=== PATIENT | female | born 1990 | race Two or more races ===

== ENCOUNTER 2025-05-13 18:01 | Inpatient (IN) | payer BC, OTHER ==
[~2025-05-13] VITALS: Ht 162.6 cm; Wt 105.0 kg
[2025-05-13] MEDS ORDERED: DAPA1TAB5 PO (18:08)
[2025-05-13 18:20] LABS: GLUCOMETER DEV NAME(LOC) ERT.7; GLUCOSE,POINT OF CARE 391 MG/DL (70-110)
[2025-05-13] MEDS: SODIUM CHLORIDE 0.9% 1,000 ML IV ONE (18:34)
[2025-05-13 18:38] LABS: PLATELET COUNT (AUTO) 271 K/uL (150-450); RED BLOOD CELL COUNT(AUTO) 4.98 MIL/uL (4.00-5.20); RED CELL DISTRIBUTION WIDTH 13.4 % (11.5-14.5); WHITE BLOOD COUNT (AUTO) 8.8 K/uL (4.5-11.0)
[2025-05-13 18:43] LABS: CALCIUM, TOTAL 8.9 mg/dL (8.8-10.5); CREATININE 0.85 mg/dL (0.60-1.30); GLOMERULAR FILTR. RATE CALC > 60 mL/min (>60); GLUCOSE,RANDOM 349 mg/dL (70-110); SODIUM SERUM 134 mmol/L (136-145); UREA NITROGEN, BLOOD 9 mg/dL (7-18)
[2025-05-13] MEDS: INSULIN REGULAR, HUMAN 100 UNITS/ML IVP ONE ×2 (19:00→20:57)
[2025-05-13 19:15] LABS: APPEARANCE,URINE CLEAR (CLEAR); GLUCOSE, URINE (UA) >=1000 mg/dL (NEGATIVE); LEUKOCYTE ESTERASE ,URINE NEGATIVE (NEGATIVE); NITRATE,URINE NEGATIVE (NEGATIVE); OCCULT BLOOD,URINE NEGATIVE (NEGATIVE); SPECIFIC GRAVITIY, URINE 1.041 (1.003-1.030)
[2025-05-13] MEDS ORDERED: SODIUM CHLORIDE 0.45% 1,000 ML IV PRN ×2 (20:00→23:00)
[2025-05-13] MEDS: SODIUM CHLORIDE 0.9% 1,000 ML IV SCH (20:00)
[2025-05-13] MEDS ORDERED: POTASSIUM CHLORIDE 40 MEQ in SODIUM CHLORIDE 0.45% 1,000 ML IV PRN ×2 (20:00→23:00)
[2025-05-13] MEDS ORDERED: INSULIN REGULAR, HUMAN 100 UNITS/ML IVP PRN ×2 (20:00→23:00)
[2025-05-13] MEDS ORDERED: DEXTROSE 50%-WATER 25 GM/50 ML SYRINGE IVP PRN ×2 (20:00→23:00)
[2025-05-13 20:06] LABS: GLUCOMETER DEV NAME(LOC) ER.7; GLUCOSE,POINT OF CARE 246 MG/DL (70-110)
[2025-05-13] MEDS: POTASSIUM CHL 20 MEQ/0.45% NS 1,000 ML IV PRN (20:57)
[2025-05-13] MEDS: DEXTROSE 5%-0.45% SODIUM CHL 1,000 ML IV PRN (20:58)
[2025-05-13] MEDS: INSULIN REGULAR, HUMAN 100 UNITS in SODIUM CHLORIDE 0.9% 99 ML IV PRN (20:58)
[2025-05-13 22:15] LABS: GLUCOMETER DEV NAME(LOC) ER.7; GLUCOSE,POINT OF CARE 210 MG/DL (70-110)
[2025-05-13] MEDS ORDERED: ZOLPIDEM TARTRATE 5 MG TABLET PO PRN (23:00)
[2025-05-13] MEDS ORDERED: ACETAMINOPHEN 325 MG TABLET PO PRN (23:00)
[2025-05-13] MEDS ORDERED: IPRATROPIUM BROMIDE 0.5 MG/2.5 ML NEB SOLUTION NEB PRN (23:00)
[2025-05-13] MEDS ORDERED: MORPHINE SULFATE 2 MG/ML SYRINGE IVP PRN (23:00)
[2025-05-13] MEDS ORDERED: POTASSIUM CHL 20 MEQ/0.45% NS 1,000 ML IV PRN (23:00)
[2025-05-13] MEDS ORDERED: ALBUTEROL SULFATE 2.5 MG/0.5 ML NEB SOLUTION NEB PRN (23:00)
[2025-05-13] MEDS ORDERED: MAGNESIUM HYDROXIDE SUSPENSION 30 ML UDCUP PO PRN (23:00)
[2025-05-13] MEDS ORDERED: DEXTROSE 5%-0.45% SODIUM CHL 1,000 ML IV PRN (23:00)
[2025-05-13] MEDS ORDERED: BISACODYL 10 MG RECTAL RECTAL SUPPOSITORY PR PRN (23:00)
[2025-05-13] MEDS ORDERED: HYDROCODONE/ACETAMINOPHEN 5-325 MG TABLET PO PRN (23:00)
[2025-05-13] MEDS ORDERED: SODIUM CHLORIDE 0.9% 1,000 ML IV SCH (23:00)
[2025-05-13] MEDS ORDERED: INSULIN REGULAR, HUMAN 100 UNITS/ML IVP ONE (23:00)
[2025-05-13] MEDS ORDERED: ONDANSETRON HCL 4 MG/2 ML VIAL IVP PRN (23:00)
[2025-05-13] MEDS ORDERED: MORPHINE SULFATE 4 MG/ML VIAL IVP PRN (23:08)
[2025-05-13 23:16] LABS: GLUCOMETER DEV NAME(LOC) ER.7; GLUCOSE,POINT OF CARE 146 MG/DL (70-110)
[2025-05-14] VITALS: BP 106/61; PULSE 80; RESP 26; TEMP 97.6; O2SAT 97
[2025-05-14] MEDS: HEPARIN SODIUM,PORCINE 5,000 UNITS/ML VIAL SQ SCH (00:42)
[2025-05-14 00:43] LABS: CALCIUM, TOTAL 8.2 mg/dL (8.8-10.5); CREATININE 0.67 mg/dL (0.60-1.30); GLOMERULAR FILTR. RATE CALC > 60 mL/min (>60); GLUCOSE,RANDOM 77 mg/dL (70-110); SODIUM SERUM 135 mmol/L (136-145); UREA NITROGEN, BLOOD 10 mg/dL (7-18)
[2025-05-14] MEDS: POTASSIUM CHLORIDE 40 MEQ in SODIUM CHLORIDE 0.45% 1,000 ML IV SCH ×2 (03:13→23:13)
[2025-05-14 04:00] VITALS: BP 114/65; PULSE 70; RESP 18; TEMP 98.2; O2SAT 98
[2025-05-14 05:16] LABS: GLUCOMETER DEV NAME(LOC) ICUN.6; GLUCOSE,POINT OF CARE 90 MG/DL (70-110)
[2025-05-14 05:16] LABS: GLUCOMETER DEV NAME(LOC) ICUN.6; GLUCOSE,POINT OF CARE 93 MG/DL (70-110)
[2025-05-14 05:16] LABS: GLUCOMETER DEV NAME(LOC) ICUN.6; GLUCOSE,POINT OF CARE 76 MG/DL (70-110)
[2025-05-14 05:16] LABS: GLUCOMETER DEV NAME(LOC) ICUN.6; GLUCOSE,POINT OF CARE 110 MG/DL (70-110)
[2025-05-14 05:16] LABS: GLUCOMETER DEV NAME(LOC) ICUN.6; GLUCOSE,POINT OF CARE 117 MG/DL (70-110)
[2025-05-14 05:16] LABS: GLUCOMETER DEV NAME(LOC) ICUN.6; GLUCOSE,POINT OF CARE 92 MG/DL (70-110)
[2025-05-14 05:21] LABS: GLUCOMETER DEV NAME(LOC) ICU.S7; GLUCOSE,POINT OF CARE 133 MG/DL (70-110)
[2025-05-14 06:03] LABS: ASPARTATE AMINOTRANSFERASE 18 U/L (15-37); CALCIUM, TOTAL 8.0 mg/dL (8.8-10.5); CREATININE 0.49 mg/dL (0.60-1.30); GLOMERULAR FILTR. RATE CALC > 60 mL/min (>60); GLUCOSE,RANDOM 86 mg/dL (70-110); PHOSPHORUS 3.1 mg/dL (2.5-4.9); SODIUM SERUM 136 mmol/L (136-145); TOTAL PROTEIN, SERUM 6.3 g/dL (6.4-8.2); UREA NITROGEN, BLOOD 11 mg/dL (7-18)
[2025-05-14 06:31] LABS: GLUCOMETER DEV NAME(LOC) ICU.S7; GLUCOSE,POINT OF CARE 99 MG/DL (70-110)
[2025-05-14 08:00] VITALS: BP 94/57; PULSE 80; RESP 18; TEMP 98.2; O2SAT 97
[2025-05-14 09:32] LABS: CALCIUM, TOTAL 7.7 mg/dL (8.8-10.5); CREATININE 0.61 mg/dL (0.60-1.30); GLOMERULAR FILTR. RATE CALC > 60 mL/min (>60); GLUCOSE,RANDOM 99 mg/dL (70-110); SODIUM SERUM 135 mmol/L (136-145); UREA NITROGEN, BLOOD 9 mg/dL (7-18)
[2025-05-14] MEDS: DOCUSATE SODIUM 100 MG CAPSULE PO SCH (09:55)
[2025-05-14] MEDS: PANTOPRAZOLE SODIUM 40 MG DR TABLET PO SCH (09:55)
[2025-05-14] MEDS: INSULIN REGULAR, HUMAN 100 UNITS in SODIUM CHLORIDE 0.9% 99 ML IV PRN (10:30)
[2025-05-14 10:37] LABS: ABG A-A DIFF O2 23.8 mmHg (10-20.0); ABG BASE EXCESS -10.5 mmol/L (-2.0-3.0); ABG CARBOXYHEMOGLOBIN 0.3 % (0.5-1.5); ABG HCO3 17.2 mmol/L (21.0-28.0); ABG METHEMOGLOBIN 0.0 % (0.0-1.5); ABG OXYGEN CONTENT 18.4 mL/dL (15.0-23.0); ABG OXYGEN SATURATION 97.0 % (94.0-98.0); ABG OXYHEMOGLOBIN 96.7 % (94.0-98.0); ABG PCO2 30 mmHg (32.0-45.0); ABG PH 7.326 (7.350-7.450); ABG TOTAL HEMOGLOBIN 13.5 G/dL (12.0-16.0); ALLEN TEST, BLOOD GAS Positive; FRACTIONATED INSPIRED OXYGEN 21.0 % (21-100.0); PO2, ARTERIAL BG 89.6 mmHg (83.0-108.0); SITE, BLOOD GAS LFT RADIAL; SOURCE, BLOOD GAS ARTERIAL; TEMPERATURE, FAHRENHEIT, BG 98.2 FAHREN (96.0-98.6)
[2025-05-14 10:38] LABS: O2 DEVICE,BLOOD GAS ROOM AIR (ROOM AIR)
[2025-05-14 10:41] LABS: GLUCOMETER DEV NAME(LOC) ICU.S7; GLUCOSE,POINT OF CARE 138 MG/DL (70-110)
[2025-05-14 10:41] LABS: GLUCOMETER DEV NAME(LOC) ICU.S7; GLUCOSE,POINT OF CARE 107 MG/DL (70-110)
[2025-05-14 10:41] LABS: GLUCOMETER DEV NAME(LOC) ICU.S7; GLUCOSE,POINT OF CARE 114 MG/DL (70-110)
[2025-05-14 10:41] LABS: GLUCOMETER DEV NAME(LOC) ICU.S7; GLUCOSE,POINT OF CARE 80 MG/DL (70-110)
[2025-05-14 12:00] VITALS: BP 100/61; PULSE 86; RESP 18; TEMP 98.4; O2SAT 98
[2025-05-14 12:55] LABS: GLUCOMETER DEV NAME(LOC) ICU.S7; GLUCOSE,POINT OF CARE 93 MG/DL (70-110)
[2025-05-14 12:55] LABS: GLUCOMETER DEV NAME(LOC) ICU.S7; GLUCOSE,POINT OF CARE 91 MG/DL (70-110)
[2025-05-14 13:41] LABS: GLUCOMETER DEV NAME(LOC) ICU.S7; GLUCOSE,POINT OF CARE 74 MG/DL (70-110)
[2025-05-14 13:41] LABS: GLUCOMETER DEV NAME(LOC) ICUN.6; GLUCOSE,POINT OF CARE 132 MG/DL (70-110)
[2025-05-14 16:00] VITALS: BP 111/69; PULSE 77; RESP 18; TEMP 98.3; O2SAT 98
[2025-05-14 18:20] LABS: GLUCOMETER DEV NAME(LOC) ICU.S7; GLUCOSE,POINT OF CARE 132 MG/DL (70-110)
[2025-05-14 18:20] LABS: GLUCOMETER DEV NAME(LOC) ICU.S7; GLUCOSE,POINT OF CARE 147 MG/DL (70-110)
[2025-05-14 18:20] LABS: GLUCOMETER DEV NAME(LOC) ICU.S7; GLUCOSE,POINT OF CARE 104 MG/DL (70-110)
[2025-05-14 18:20] LABS: GLUCOMETER DEV NAME(LOC) ICU.S7; GLUCOSE,POINT OF CARE 111 MG/DL (70-110)
[2025-05-14 18:20] LABS: GLUCOMETER DEV NAME(LOC) ICUN.6; GLUCOSE,POINT OF CARE 113 MG/DL (70-110)
[2025-05-14 20:00] VITALS: BP 116/69; PULSE 76; PULSE 80; RESP 18; TEMP 98.5; O2SAT 98
[2025-05-14 20:01] LABS: CALCIUM, TOTAL 8.0 mg/dL (8.8-10.5); CREATININE 0.49 mg/dL (0.60-1.30); GLOMERULAR FILTR. RATE CALC > 60 mL/min (>60); GLUCOSE,RANDOM 103 mg/dL (70-110); SODIUM SERUM 134 mmol/L (136-145); UREA NITROGEN, BLOOD 5 mg/dL (7-18)
[2025-05-14 21:10] LABS: GLUCOMETER DEV NAME(LOC) ICUN.6; GLUCOSE,POINT OF CARE 105 MG/DL (70-110)
[2025-05-14 21:10] LABS: GLUCOMETER DEV NAME(LOC) ICUN.6; GLUCOSE,POINT OF CARE 113 MG/DL (70-110)
[2025-05-14] MEDS ORDERED: DEXTROSE 50%-WATER 25 GM/50 ML SYRINGE IVP PRN (22:15)
[2025-05-14] MEDS: POTASSIUM CHLORIDE 20 MEQ ER TABLET PO ONE (22:22)
[2025-05-14] MEDS: INSULIN GLARGINE,HUM.REC.ANLOG 100 UNITS/ML SQ ONE (22:28)
[2025-05-14 22:45] LABS: GLUCOMETER DEV NAME(LOC) ICU.S7; GLUCOSE,POINT OF CARE 130 MG/DL (70-110)
[2025-05-15] VITALS: BP 122/73; PULSE 76; RESP 18; TEMP 98.5; O2SAT 98
[2025-05-15 01:34] LABS: CALCIUM, TOTAL 8.3 mg/dL (8.8-10.5); CREATININE 0.52 mg/dL (0.60-1.30); GLOMERULAR FILTR. RATE CALC > 60 mL/min (>60); GLUCOSE,RANDOM 235 mg/dL (70-110); SODIUM SERUM 132 mmol/L (136-145); UREA NITROGEN, BLOOD 6 mg/dL (7-18)
[2025-05-15 04:00] VITALS: BP 109/76; PULSE 66; RESP 19; TEMP 97.8; O2SAT 97
[2025-05-15 05:37] LABS: CALCIUM, TOTAL 8.5 mg/dL (8.8-10.5); CREATININE 0.40 mg/dL (0.60-1.30); GLOMERULAR FILTR. RATE CALC > 60 mL/min (>60); GLUCOSE,RANDOM 176 mg/dL (70-110); SODIUM SERUM 133 mmol/L (136-145); UREA NITROGEN, BLOOD 6 mg/dL (7-18)
[2025-05-15] MEDS: INSULIN LISPRO 100 UNITS/ML SQ PRN (06:20)
[2025-05-15 06:26] LABS: GLUCOMETER DEV NAME(LOC) ICUN.6; GLUCOSE,POINT OF CARE 183 MG/DL (70-110)
[2025-05-15 08:00] VITALS: BP 112/70; PULSE 88; RESP 18; TEMP 98.4; O2SAT 98
[2025-05-15 08:42] LABS: PLATELET COUNT (AUTO) 219 K/uL (150-450); RED BLOOD CELL COUNT(AUTO) 4.94 MIL/uL (4.00-5.20); RED CELL DISTRIBUTION WIDTH 13.2 % (11.5-14.5); WHITE BLOOD COUNT (AUTO) 6.5 K/uL (4.5-11.0)
[2025-05-15 08:54] LABS: CALCIUM, TOTAL 8.4 mg/dL (8.8-10.5); CREATININE 0.64 mg/dL (0.60-1.30); GLOMERULAR FILTR. RATE CALC > 60 mL/min (>60); GLUCOSE,RANDOM 225 mg/dL (70-110); SODIUM SERUM 131 mmol/L (136-145); UREA NITROGEN, BLOOD 5 mg/dL (7-18)
[2025-05-15 12:00] VITALS: BP 135/81; PULSE 103; RESP 20; TEMP 98.4; O2SAT 98
[2025-05-15 12:06] LABS: GLUCOMETER DEV NAME(LOC) ICUN.6; GLUCOSE,POINT OF CARE 242 MG/DL (70-110)
[2025-05-15] MEDS: SODIUM CHLORIDE 0.9% 1,000 ML IV SCH (14:59)
[2025-05-15 16:00] VITALS: BP 120/77; PULSE 92; RESP 18; TEMP 98.1; O2SAT 99
[2025-05-15 19:49] VITALS: BP 117/65; PULSE 81; RESP 18; TEMP 98.2; O2SAT 98
[2025-05-15] MEDS: INSULIN GLARGINE,HUM.REC.ANLOG 100 UNITS/ML SQ SCH (20:54)
[2025-05-16 02:56] LABS: GLUCOMETER DEV NAME(LOC) 4E.2; GLUCOSE,POINT OF CARE 263 MG/DL (70-110)
[2025-05-16 04:58] VITALS: BP 95/61; PULSE 88; RESP 17; TEMP 98.1; O2SAT 98
[2025-05-16 08:00] VITALS: BP 111/65; PULSE 73; RESP 18; TEMP 98.2; O2SAT 98
[2025-05-16 10:05] LABS: GLUCOMETER DEV NAME(LOC) 4E.2; GLUCOSE,POINT OF CARE 184 MG/DL (70-110)
[2025-05-16 10:05] LABS: GLUCOMETER DEV NAME(LOC) 6S.2; GLUCOSE,POINT OF CARE 225 MG/DL (70-110)
[2025-05-16] MEDS ORDERED: INSLAN SQ (11:07)
[2025-05-16] MEDS ORDERED: SYRI-590 SQ (11:07)
[2025-05-16 11:20] LABS: GLUCOMETER DEV NAME(LOC) 6S.2; GLUCOSE,POINT OF CARE 192 MG/DL (70-110)
== END 2025-05-16 14:14 | disposition home or self-care (01) | DRG 638 ==
LOC: EMS 18:01 → EDH 22:53 → ICU 23:40 → 6S 05-15 15:50
PROVIDERS: ADMIT Internal Medicine; ATTEND Internal Medicine
DX: E11.10 Type 2 diabetes mellitus with ketoacidosis without coma (principal); E87.1 Hypo-osmolality and hyponatremia; Z79.4 Long term (current) use of insulin; Z79.84 Long term (current) use of oral hypoglycemic drugs
CPT/HCPCS: 71045; 80048; 80053; 81001; 82009; 82805; 82962; 83036; 83735; 83930; 84100; 85025; 87081; 93005; 96361; 96365; 96375; 99285; J1644; J1815; J3480; J7030; J7050; 36415-L1; 36415-TC